=== PATIENT | male | born 1965 | race Two or more races ===

== ENCOUNTER 2022-10-26 21:01 | Emergency (ER) | payer MEDICAID, OTHER ==
[~2022-10-26] VITALS: Ht 172.7 cm; Wt 65.9 kg
[2022-10-27 00:29] VITALS: BP 120/73
[2022-10-27] MEDS ORDERED: IBUP800T26 PO (00:50)
[2022-10-27] MEDS ORDERED: HYDROcodone-ACET 10/325MG TAB PO ONE (01:00)
== END 2022-10-27 01:57 | disposition home or self-care (01) ==
LOC: ER 21:01
DX: M25.561 Pain in right knee (principal); W18.39XA Other fall on same level, initial encounter; Y93.89 Activity, other specified; Y92.89 Other specified places as the place of occurrence of the external cause; Y99.8 Other external cause status